=== PATIENT | female | born 1950 | race Caucasian/White ===

== ENCOUNTER 2017-07-08 05:23 | Inpatient (IN) | payer OTHER ==
[2017-07-08] MEDS: CEFAZOLIN 2 GM/50 ML (PMX) 50 ML IVPB (05:00)
[~2017-07-08 05:23] MED LIST: LACTATED RINGER'S 1,000 ML IV*
[2017-07-08] MEDS ORDERED: GLYCOPYRROLATE 0.4 MG INJ (06:22)
[2017-07-08] MEDS ORDERED: FENTAnyl 50 MCG/ML VIAL (06:22)
[2017-07-08] MEDS ORDERED: MIDAZOLAM 1 MG/ML 2 ML INJ (06:22)
[2017-07-08] MEDS ORDERED: DEXAMETHASONE 4 MG/ML 1 ML INJ (06:22)
[2017-07-08] MEDS ORDERED: ROCURONIUM 50 MG INJ (06:22)
[2017-07-08] MEDS ORDERED: LIDOCAINE 2% (SDV) 5 ML INJ (06:22)
[2017-07-08] MEDS ORDERED: NEOSTIGMINE 3 MG/3 ML SYRINGE (06:22)
[2017-07-08] MEDS ORDERED: PROPOFOL 20 ML (06:22)
[2017-07-08] MEDS ORDERED: ONDANSETRON 4 MG INJ (06:25)
[2017-07-08] MEDS ORDERED: SUCCINYLCHOLINE CHLORIDE 100 MG/5 ML SYG IV (06:27)
[2017-07-08] MEDS ORDERED: morphine (1 MG/ML) 10ML SYRINGE IV ×3 (06:30)
[2017-07-08] MEDS ORDERED: FENTAnyl 50 MCG/ML VIAL IV ×2 (06:30)
[2017-07-08] MEDS ORDERED: OXYCODONE/ACETAMINOPHEN (5/325) TAB PO ×2 (06:30)
[2017-07-08] MEDS ORDERED: ATROPINE 1 MG/10 ML SYRINGE IV (06:30)
[2017-07-08] MEDS ORDERED: EPHEDrine SULFATE 50 MG/5 ML SYG IV (06:30)
[2017-07-08] MEDS ORDERED: LABETALOL HCL 20MG INJ IV (06:30)
[2017-07-08] MEDS ORDERED: HYDROmorphONE (0.2 MG/ML) 10ML SYG IV ×2 (06:30)
[2017-07-08] MEDS ORDERED: MIDAZOLAM 1 MG/ML 2 ML INJ IV (06:30)
[2017-07-08] MEDS ORDERED: hydrALAzine 20 MG INJ IV (06:30)
[2017-07-08] MEDS ORDERED: DIPHENHYDRAMINE 50 MG INJ IV (06:30)
[2017-07-08] MEDS: POLYMYXIN/BACITRACIN 1L IRRIG (07:42)
[2017-07-08] MEDS: BUPIVACAINE 0.25% (MPF) 30 ML INJ (07:42)
[2017-07-08] MEDS ORDERED: hydrALAzine 20 MG INJ (07:55)
[2017-07-08] MEDS ORDERED: FLUMAZENIL 0.5 MG INJ (08:03)
[2017-07-08] MEDS ORDERED: GELATIN SIZE 100 SPONGE (08:44)
[2017-07-08] MEDS ORDERED: THROMBIN 5000 UNIT VIAL (08:45)
[2017-07-08] MEDS ORDERED: DEXTROSE 5%-0.45% NACL 1,000 ML IV (09:40)
[2017-07-08] MEDS: ONDANSETRON 4 MG INJ IV (09:44)
[2017-07-08] MEDS: MEPERIDINE 25 MG INJ IV (09:44)
[2017-07-08] MEDS: HYDROmorphONE (0.2 MG/ML) 10ML SYG IV ×3 (09:50→10:20)
[2017-07-08] MEDS ORDERED: ZOLPIDEM 5 MG TAB PO (10:00)
[2017-07-08] MEDS ORDERED: HYDROCODONE/APAP (5/325) TAB PO (10:00)
[2017-07-08] MEDS ORDERED: ACETAMINOPHEN 325 MG TAB PO (10:00)
[2017-07-08] MEDS ORDERED: AL HYDROX/MG HYDROX/SIMETH 30 ML CUP PO (10:00)
[2017-07-08] MEDS ORDERED: PROCHLORPERAZINE 10 MG TAB PO (10:00)
[2017-07-08] MEDS ORDERED: NALOXONE (0.4 MG/ML) INJ IV (10:00)
[2017-07-08] MEDS ORDERED: DIPHENHYDRAMINE 50 MG CAP PO (10:00)
[2017-07-08] MEDS ORDERED: TRIMETHOBENZAMIDE 100 MG/ML VIAL IM (10:00)
[2017-07-08] MEDS ORDERED: ONDANSETRON 4 MG INJ IV (10:00)
[2017-07-08] MEDS ORDERED: BETHANECHOL 25 MG TAB PO (10:00)
[2017-07-08] MEDS ORDERED: NACL 0.9% 3 ML SYG IV (10:00)
[2017-07-08] MEDS: HYDROmorphONE 0.2 MG/ML PCA IV ×2 (10:17→18:12)
[2017-07-08] MEDS: DIAZEPAM 5 MG/ML SYG IM (12:34)
[2017-07-08] MEDS: CEFAZOLIN 1 GM/50 ML (PMX) 50 ML IVPB ×3 (12:34→23:34)
[2017-07-08] MEDS ORDERED: GLUCOSE GEL 15 GRAM TUBE BUCCAL (14:00)
[2017-07-08] MEDS ORDERED: DEXTROSE 50% 50 ML SYRINGE IV ×2 (14:00)
[2017-07-08] MEDS ORDERED: GLUCOSE GEL 15 GRAM TUBE PO ×2 (14:00)
[2017-07-08] MEDS ORDERED: GLUCAGON 1 MG INJ IM (14:00)
[2017-07-08] MEDS: INSULIN GLARGINE [LANtus] 3 ML PEN SC ×2 (14:42→21:14)
[2017-07-08] MEDS ORDERED: INSULIN GLARGINE [LANtus] 3 ML PEN SC (15:00)
[2017-07-08] MEDS: SOD CHLORIDE 0.9% 1,000 ML IV ×2 (16:49→23:34)
[2017-07-08] MEDS: INSULIN ASPART [NOVOLOG] 3 ML PEN SC ×2 (17:53→21:14)
[2017-07-08] MEDS: ATORVASTATIN 10 MG TAB PO (21:12)
[2017-07-08] MEDS: GABAPENTIN 300 MG CAP PO (21:12)
[2017-07-08] MEDS: RANITIDINE 150 MG TAB PO (21:13)
[2017-07-08] MEDS: POLYETHYLENE GLYCOL 17 GM PACKET PO (21:13)
[2017-07-08] MEDS: CEPASTAT LOZENGE MT (23:38)
[2017-07-09] MEDS: ACCU-CHEK XX (02:00)
[2017-07-09] MEDS: HYDROmorphONE 0.2 MG/ML PCA IV (05:19)
[2017-07-09] MEDS: CEFAZOLIN 1 GM/50 ML (PMX) 50 ML IVPB (05:20)
[2017-07-09 05:27] LABS: HEMATOCRIT 28.9 % (37.0-47.0); HEMOGLOBIN 9.8 g/dl (12.0-16.0)
[2017-07-09 06:04] LABS: ANION GAP 13 (8-16); BLOOD UREA NITROGEN 17 mg/dl (7-20); CALCIUM 8.6 mg/dl (8.4-10.2); CARBON DIOXIDE 24 mmol/L (21-31); CHLORIDE 109 mmol/L (97-110); CREATININE 0.77 mg/dl (0.44-1.00); GLUCOSE 142 mg/dl (70-220); POTASSIUM 4.2 mmol/L (3.5-5.1); SODIUM 142 mmol/L (135-144)
[2017-07-09] MEDS: INSULIN ASPART [NOVOLOG] 3 ML PEN SC ×4 (07:50→21:00)
[2017-07-09] MEDS ORDERED: FERROUS SULFATE (EC) 325 MG TAB PO (09:00)
[2017-07-09] MEDS: AMLODIPINE 5 MG TAB PO (09:00)
[2017-07-09] MEDS: DOCUSATE SODIUM 100 MG CAP PO ×3 (09:00→21:12)
[2017-07-09] MEDS: LISINOPRIL 20 MG TAB PO (09:00)
[2017-07-09] MEDS: GABAPENTIN 300 MG CAP PO ×2 (09:03→21:12)
[2017-07-09] MEDS: POLYETHYLENE GLYCOL 17 GM PACKET PO ×2 (09:03→21:00)
[2017-07-09] MEDS: RANITIDINE 150 MG TAB PO ×2 (09:04→21:12)
[2017-07-09] MEDS: ASCORBIC ACID 500 MG TAB PO ×2 (09:04→21:12)
[2017-07-09] MEDS: METOPROLOL (XL) 50 MG TAB PO (09:04)
[2017-07-09] MEDS: INSULIN GLARGINE [LANtus] 3 ML PEN SC ×2 (09:20→21:21)
[2017-07-09] MEDS: BETHANECHOL 25 MG TAB PO (09:43)
[2017-07-09] MEDS: HYDROCODONE/APAP (5/325) TAB PO ×4 (10:55→22:06)
[2017-07-09] MEDS: SOD CHLORIDE 0.9% 1,000 ML IV (11:00)
[2017-07-09 14:47] LABS: UR BACTERIA FEW /HPF (NONE SEEN); UR RBC 2 /HPF (0-5); UR WBC 1 /HPF (0-5)
[2017-07-09 14:53] LABS: UR MUCUS FEW /HPF (NONE SEEN)
[2017-07-09 14:59] LABS: ADD UMIC YES; UR ASCORBIC ACID NEGATIVE (NEGATIVE); UR BILIRUBIN (Dip) NEGATIVE (NEGATIVE); UR BLOOD (Dip) 1+ mg/dL (NEGATIVE); UR CLARITY CLEAR (CLEAR); UR COLOR STRAW (YELLOW); UR GLUCOSE (Dip) NEGATIVE (NEGATIVE); UR KETONES (Dip) NEGATIVE (NEGATIVE); UR LEUKOCYTE ESTERASE (Dip) NEGATIVE Leu/ul (NEGATIVE); UR NITRITE (Dip) NEGATIVE (NEGATIVE); UR SPECIFIC GRAVITY (Dip) 1.009 (1.003-1.030); UR TOTAL PROTEIN (Dip) NEGATIVE (NEGATIVE); UR UROBILINOGEN (Dip) NEGATIVE (NEGATIVE)
[2017-07-09] MEDS: HYDROCORTISONE 0.5% 28.35 GM OINT TOP (18:26)
[2017-07-09] MEDS: DIAZEPAM 5 MG TAB PO (19:44)
[2017-07-09] MEDS: ATORVASTATIN 10 MG TAB PO (21:12)
[2017-07-09] MEDS: CEPASTAT LOZENGE MT (21:15)
[2017-07-10] MEDS: ACCU-CHEK XX (01:58)
[2017-07-10] MEDS: HYDROCODONE/APAP (5/325) TAB PO ×5 (02:11→18:53)
[2017-07-10] MEDS: HYDROCODONE/APAP (10/325) TAB PO ×2 (02:11→18:53)
[2017-07-10] MEDS: DOCUSATE SODIUM 100 MG CAP PO ×2 (09:00→20:54)
[2017-07-10] MEDS: ASCORBIC ACID 500 MG TAB PO ×2 (09:01→20:39)
[2017-07-10] MEDS: RANITIDINE 150 MG TAB PO ×2 (09:01→20:39)
[2017-07-10] MEDS: GABAPENTIN 300 MG CAP PO ×2 (09:01→20:39)
[2017-07-10] MEDS: POLYETHYLENE GLYCOL 17 GM PACKET PO ×2 (09:02→20:38)
[2017-07-10] MEDS: AMLODIPINE 5 MG TAB PO (09:02)
[2017-07-10] MEDS: METOPROLOL (XL) 50 MG TAB PO (09:02)
[2017-07-10] MEDS: LISINOPRIL 20 MG TAB PO (09:03)
[2017-07-10] MEDS: INSULIN GLARGINE [LANtus] 3 ML PEN SC ×2 (09:16→20:49)
[2017-07-10] MEDS: INSULIN ASPART [NOVOLOG] 3 ML PEN SC ×4 (09:17→20:48)
[2017-07-10] MEDS: DIAZEPAM 5 MG TAB PO ×3 (10:05→20:39)
[2017-07-10] MEDS: ATORVASTATIN 10 MG TAB PO (20:39)
[2017-07-11] MEDS: HYDROCODONE/APAP (5/325) TAB PO ×4 (00:06→12:38)
[2017-07-11] MEDS: HYDROCODONE/APAP (10/325) TAB PO ×4 (00:06→12:38)
[2017-07-11] MEDS: DIAZEPAM 5 MG TAB PO ×3 (01:39→10:46)
[2017-07-11] MEDS: ACCU-CHEK XX (02:37)
[2017-07-11] MEDS: INSULIN ASPART [NOVOLOG] 3 ML PEN SC ×2 (07:50→13:03)
[2017-07-11] MEDS: RANITIDINE 150 MG TAB PO (08:50)
[2017-07-11] MEDS: POLYETHYLENE GLYCOL 17 GM PACKET PO (08:50)
[2017-07-11] MEDS: ASCORBIC ACID 500 MG TAB PO (08:50)
[2017-07-11] MEDS: DOCUSATE SODIUM 100 MG CAP PO (08:51)
[2017-07-11] MEDS: GABAPENTIN 300 MG CAP PO (08:51)
[2017-07-11] MEDS: LISINOPRIL 20 MG TAB PO (08:51)
[2017-07-11] MEDS: AMLODIPINE 5 MG TAB PO (08:51)
[2017-07-11] MEDS: METOPROLOL (XL) 50 MG TAB PO (08:52)
[2017-07-11] MEDS: INSULIN GLARGINE [LANtus] 3 ML PEN SC (08:54)
== END 2017-07-11 14:05 | disposition home or self-care (01) | DRG 520 ==
LOC: REC 05:23 → MS1 11:15
PROVIDERS: Orthopaedic Surgery
PROC: 0SB20ZZ Excision of Lumbar Vertebral Disc, Open Approach (ICD-10-PCS; principal; 2017-07-08 06:59)
PROC: 01NB0ZZ Release Lumbar Nerve, Open Approach (ICD-10-PCS; 2017-07-08 06:59)
PROC: 4A11X4G Monitoring of Peripheral Nervous Electrical Activity, Intraoperative, External Approach (ICD-10-PCS; 2017-07-08 06:59)
DX: M51.16 Intervertebral disc disorders with radiculopathy, lumbar region (principal); E11.65 Type 2 diabetes mellitus with hyperglycemia; I10 Essential (primary) hypertension; M48.061 Spinal stenosis, lumbar region without neurogenic claudication; I25.10 Atherosclerotic heart disease of native coronary artery without angina pectoris; Z95.1 Presence of aortocoronary bypass graft
CPT/HCPCS: 72020; 80048; 81001; 82962; 85014; 85018; 86850; 86900; 86901; 86920; 87086; 97116; 97162; 97530